=== PATIENT | female | born 1975 | race Caucasian/White ===

== ENCOUNTER 2019-11-03 13:52 | Emergency (ER) | payer OTHER ==
[2019-11-03 16:27] VITALS: BP 141/73
[2019-11-03 16:41] LABS: Influenza A Molecular Negative (Negative); Influenza B Molecular Negative (Negative)
--- NOTE | 2019-11-03 16:48 | UC ---
FLU HPI - HPI Summary HPI Summary: Patient started feeling sick 10/25/2019. she has had fevers, fatigue ST since, she had a meeting with office co-worker either 10/22 or 10/23 who tested positive for COVID 19. she was contacted by Health department today and told to get tested she denies cough but feels "run down and drained" over past 10-11 days - History of Current Complaint Chief Complaint: UCGeneralIllness Stated Complaint: FEVER NASAL CONGESTION COUGH DIARRHEA Time Seen by Provider: 11/03/19 16:24 Hx Obtained From: Patient ?: No Onset/Duration: Gradual Onset Pain Intensity: 0 Associated Signs & Symptoms: Positive: Fever, Sore Throat, Nasal Congestion, Diarrhea - today. Negative: Cough - Allergy/Home Medications Allergies/Adverse Reactions: Allergies Allergy/AdvReac Type Severity Reaction Status Date / Time No Known Allergies Allergy Verified 11/03/19 16:28 Home Medications: Home Medications Acetaminophen TAB* [Tylenol TAB*] 1,000 mg PO Q6H PRN 11/03/19 [History Confirmed 11/03/19] Nepalese Herbs 1 dose PO DAILY 11/03/19 [History Confirmed 11/03/19] Ibuprofen TAB* [Motrin TAB* 400 MG] 400 mg PO Q6H PRN 11/03/19 [History Confirmed 11/03/19] Lactobacillus Rhamnosus [id number] [Probiotic Digestive Care] 1 each PO DAILY [History Confirmed 11/03/19] PMH/Surg Hx/FS Hx/Imm Hx Previously Healthy: Yes - Surgical History Surgical History: Yes Surgery Procedure, Year, and Place: ovarian cysts removed - Family History Known Family History: Positive: Other - father has cancer - Social History Occupation: Employed Full-time Lives: With Family Alcohol Use: None Substance Use Type: None Smoking Status (MU): Never Smoked Tobacco Review of Systems All Other Systems Reviewed And Are Negative: Yes Constitutional: Positive: Fever, Fatigue Skin: Positive: Negative ENT: Positive: Sore Throat, Sinus Congestion. Negative: Nasal Discharge, Sinus Pain/Tenderness Respiratory: Positive: Negative. Negative: Shortness Of Breath, Cough Cardiovascular: Positive: Negative. Negative: Chest Pain Musculoskeletal: Positive: Negative Neurological/Mental Status: Positive: Negative, Headache - minor frontal Psychological: Positive: Negative Is Patient Immunocompromised?: No Physical Exam Triage Information Reviewed: Yes Appearance: Well-Appearing, No Pain Distress, Well-Nourished Vital Signs: Initial Vital Signs Temp 99.3 F 11/03/19 16:19 Pulse 99 11/03/19 16:19 Resp 16 11/03/19 16:19 BP 141/73 11/03/19 16:19 Pulse Ox 98 11/03/19 16:19 Vital Signs Reviewed: Yes Eyes: Positive: Conjunctiva Clear ENT: Positive: Pharynx normal, Nasal congestion. Negative: Sinus tenderness Neck exam: Normal Respiratory Exam: Normal Respiratory: Positive: Lungs clear, Other: - no cough on exam Cardiovascular Exam: Normal Cardiovascular: Positive: RRR Musculoskeletal Exam: Normal Neurological Exam: Normal Psychological Exam: Normal Skin Exam: Normal Skin: Negative: Rashes Flu Course/Dx - Differential Dx/Diagnosis Differential Diagnosis/HQI/PQRI: Bronchitis, Influenza, Upper Respiratory Infection, Other - COVID 19 Provider Diagnosis: Viral illness Discharge ED - Sign-Out/Discharge Documenting (check all that apply): Patient Departure All imaging exams completed and their final reports reviewed: No Studies - Discharge Plan Condition: Good Disposition: HOME Patient Education Materials: Upper Respiratory Infection (ED) Referrals: Matt Wallace MD [Primary Care Provider] - Additional Instructions: Rest, drink plenty of fluids use Tylenol and ibuprofen as directed for pain/fever Follow In home isolation instructions given to you - do not go to work until COVID-19 results are known Please report to ER if you experience shortness of breath, cough or new symptoms - Billing Disposition and Condition Condition: GOOD Disposition: Home
== END 2019-11-03 17:50 | disposition home or self-care (01) ==
LOC: UCEAST 13:52
DX: B34.9 Viral infection, unspecified (principal); R53.83 Other fatigue; J02.9 Acute pharyngitis, unspecified; R09.81 Nasal congestion
CPT/HCPCS: 87651; 99213; G0463